=== PATIENT | male | born 1960 | race Caucasian/White ===

== ENCOUNTER 2023-11-04 09:23 | Outpatient (CLI) | payer MEDICARE, OTHER, SELFPAY ==
[2023-11-04 10:32] LABS: Lactate Dehydrogenase 177 U/L (120-246)
== END 2023-11-04 09:24 | disposition home or self-care (01) ==
PROVIDERS: PCP Family Medicine Adolescent Medicine
DX: C84.68 Anaplastic large cell lymphoma, ALK-positive, lymph nodes of multiple sites (principal)
CPT/HCPCS: 36415; 83615